=== PATIENT | male | born 1995 ===

== ENCOUNTER → 2020-11-13 12:33 | Outpatient (CLI) | payer OTHER, SELFPAY ==
--- NOTE | 2020-11-13 | DI.MRI.S_ITS ---
PROCEDURE: MR SHOULDER RT WO CON INDICATIONS: Pain in right shoulder TECHNIQUE: Noncontrast oblique coronal T2 fast spin echo with fat saturation, oblique sagittal T1 spin echo and T2 fast spin echo with fat saturation, axial T1 spin echo and T2 fast spin echo with fat saturation through the shoulder. COMPARISON: None. FINDINGS: Image quality: Excellent. Rotator cuff: Tendinosis and low grade articular and bursal surface partial thickness tear involving distal supraspinatus at its insertion on the humeral head is seen extending to musculotendinous junction. Distal infraspinatus tendinosis is seen. Distal subscapularis tendon is grossly intact. No full-thickness rotator cuff tendon rupture.. Sagittal images demonstrate no significant muscle atrophy. Bones and bursae: No bone marrow contusions or fractures. No acromioclavicular joint degeneration. The acromion demonstrates conventional anatomy, without an os acromiale. Small to moderate amount of subacromial subdeltoid bursal fluid is seen. Capsule and soft tissues: There is slight fraying of superior anterior labrum at 12 to 1 o'clock position which may indicate subtle superior anterior labral tear. Rest of the labrum is intact. Glenohumeral ligaments are intact. The long head of the biceps tendon demonstrates normal location and morphology. The rotator interval appears normal, without fibrosis. The coracohumeral ligament is normal in thickness. IMPRESSION: 1. Tendinosis and low grade articular and bursal surface partial thickness tear involving distal supraspinatus extending to musculotendinous junction. Distal infraspinatus tendinosis. No full-thickness rotator cuff tendon rupture. 2. Small to moderate amount of subacromial subdeltoid bursal fluid. No gross loose body. 3. Subtle signal abnormality and fraying of superior anterior labrum at 12 to 1 o'clock position concerning for subtle superior anterior labral tear. Dictated by: Willy Sky M.D. on 11/13/2020 at 13:24 Approved by: Willy Sky M.D. on 11/13/2020 at 13:31
== END ==
PROVIDERS: Referring Provider Family Medicine; Visit Provider Family Medicine
DX: M25.511 Pain in right shoulder (principal); M75.111 Incomplete rotator cuff tear or rupture of right shoulder, not specified as traumatic
CPT/HCPCS: 73221